=== PATIENT | male | born 1960 | race Caucasian/White ===

== ENCOUNTER 2020-05-18 10:43 | Emergency (ER) | payer OTHER ==
[2020-05-18 11:34] VITALS: BMI 30.9
[2020-05-18] MEDS ORDERED: ALBUTEROL SO4 HFA INHALER IH ONE ×2 (13:32→14:20)
[2020-05-18 13:39] LABS: BASO % 1.2 % (0-2.0); EOS % 13.7 % (0-4.5); HEMATOCRIT 50.2 % (35.4-49); HEMOGLOBIN 17.6 GM/dL (11.7-16.9); LYMPH % 35.5 % (8-40); MCH 33.5 pg (25.7-33.7); MEAN CELL VOLUME 95.6 fl (80-96); MONO % 7.2 % (3.8-10.2); NEUT % 42.4 % (42.8-82.8); PLATELET COUNT 207 K/MM3 (134-434); RBC 5.25 M/mm3 (4.00-5.60); RDW 13.2 % (11.9-15.9); WHITE BLOOD COUNT 11.7 K/mm3 (4.0-10.0)
[2020-05-18 13:45] LABS: INR 0.97 (0.83-1.09)
[2020-05-18 13:47] LABS: ACTIVATED PTT 34.1 SECONDS (25.2-36.5)
[2020-05-18 14:22] LABS: POTASSIUM 3.9 mmol/L (3.5-5.1)
[2020-05-18 14:25] LABS: BLOOD UREA NITROGEN 10.2 mg/dL (7-18); MAGNESIUM 1.9 mg/dL (1.8-2.4)
[2020-05-18 14:28] LABS: CREATININE 1.1 mg/dL (0.55-1.3)
[2020-05-18 14:29] LABS: BILIRUBIN,TOTAL 0.7 mg/dL (0.2-1); TOT PROT 7.6 g/dl (6.4-8.2)
[2020-05-18 14:33] LABS: N-TERMINAL BNP 39.3 pg/ml (5-125)
[2020-05-18] MEDS ORDERED: ASPIRIN 81 MG CHEWABLE TABLETS PO ONE (14:58)
[2020-05-18 16:34] VITALS: BP 136/82; PULSE 90; TEMP 98.2
== END 2020-05-18 18:44 | disposition left against medical advice (07) ==
LOC: JER 10:43
PROC: 3E0F7GC Introduction of Other Therapeutic Substance into Respiratory Tract, Via Natural or Artificial Opening (ICD-10-PCS; principal; 2020-05-18)
DX: R09.89 Other specified symptoms and signs involving the circulatory and respiratory systems (principal); R94.31 Abnormal electrocardiogram [ECG] [EKG]; R79.1 Abnormal coagulation profile
CPT/HCPCS: 36415; 71045-TC-FY; 80053; 82550; 83735; 83880; 84484; 85025; 85610; 85730; 93005; 93010; 99285-25; C9803; U0003